=== PATIENT | female | born 2005 | race Two or more races ===

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

== ENCOUNTER 2025-08-18 23:28 | Emergency (ER) | payer SELFPAY | END 2025-08-18 23:43 | disposition left against medical advice (07) | LOC: ER 23:28 | DX: R07.0 Pain in throat (principal); Z53.21 Procedure and treatment not carried out due to patient leaving prior to being seen by health care provider ==